=== PATIENT | male | born 1940 | race Caucasian/White ===

== ENCOUNTER 2019-10-23 08:52 | Inpatient (IN) | payer BC, MEDICARE ==
[~2019-10-23] VITALS: Ht 180.3 cm; Wt 58.3 kg
[2019-10-23] MEDS ORDERED: IOHEXOL-350 100 ML VIAL IV ONE ×2 (09:06→09:16)
[2019-10-23 09:09] LABS: BASOPHILS % (AUTO) 0.4 % (0.0-2.0); EOSINOPHILS % (AUTO) 0.7 % (0.0-6.0); HEMATOCRIT 45 % (39-51); HEMOGLOBIN 14.8 g/dL (13.5-17.5); LYMPHOCYTES # (AUTO) 0.3 /CMM (0.8-4.8); MEAN CORPUSCULAR HGB CONC 33 g/dl (31.0-36.0); MEAN CORPUSCULAR VOLUME 87 fL (80-96); MONOCYTES # (AUTO) 0.8 /CMM (0.1-1.30); MONOCYTES % (AUTO) 9.1 % (2.0-12.0); NEUTROPHILS # (AUTO) 7.7 /CMM (1.8-8.9); NEUTROPHILS % (AUTO) 86.8 % (43.0-81.0); PLATELET COUNT (AUTO) 416 /CMM (150-450); RED BLOOD CELL COUNT(AUTO) 5.12 MIL/uL (4.5-6.0); WHITE BLOOD COUNT (AUTO) 8.9 K/uL (4.3-11.0)
[2019-10-23 09:15] LABS: CALCIUM, SERUM 9.3 mg/dL (8.5-10.1); CARBON DIOXIDE 31 mmol/L (21-32); CHLORIDE 95 mmol/L (98-107); GLUCOSE 95 mg/dL (74-106); POTASSIUM 5.1 mmol/L (3.5-5.1); SODIUM SERUM 132 mmol/L (136-145); UREA NITROGEN, BLOOD 24 mg/dL (7-18)
[2019-10-23] MEDS ORDERED: DOCU-141 PO (09:20)
[2019-10-23] MEDS ORDERED: ASPI-605 PO (09:20)
[2019-10-23] MEDS ORDERED: MELO-105 PO (09:20)
[2019-10-23] MEDS ORDERED: OLME20TA13 PO (09:20)
[2019-10-23] MEDS ORDERED: PSYL3.4P6 PO (09:20)
[2019-10-23] MEDS ORDERED: TAMS-12 PO (09:20)
[2019-10-23] MEDS ORDERED: FAMO20TA8 PO ×2 (09:20)
[2019-10-23] MEDS ORDERED: BENZ0.5T43 PO (09:20)
[2019-10-23] MEDS ORDERED: LIDO1ADH71 BC (09:20)
[2019-10-23] MEDS ORDERED: ATOR20TA PO (09:20)
[2019-10-23 09:22] LABS: ALANINE AMINOTRANSFERASE 25 U/L (12-78); ALBUMIN 3.1 g/dL (3.4-5.0); BILIRUBIN,DIRECT 0.1 mg/dL (0.0-0.2); BILIRUBIN,TOTAL 0.6 mg/dL (0.2-1.0); TOTAL PROTEIN, SERUM 6.7 g/dL (6.4-8.2)
[2019-10-23 09:25] LABS: CHOLESTEROL 141 mg/dL (<200); HDL CHOLESTEROL 72 mg/dL (40-60); LDL 52 mg/dL (0-99); TRIGLYCERIDES 34 mg/dL (30-150)
[2019-10-23 09:33] LABS: ALKALINE PHOSPHATASE 165 U/L (46-116); ASPARTATE AMINOTRANSFERASE 33 U/L (15-37)
[2019-10-23] MEDS ORDERED: ASPIRIN 325 MG TABLET ONE (11:57)
[2019-10-23] MEDS ORDERED: ASPIRIN 325 MG TABLET PO SCH (12:00)
[2019-10-23] MEDS: LIDOCAINE 5% (PATCH) 1 EA PATCH TP SCH (15:25)
[2019-10-23 16:48] VITALS: BP 121/56
[2019-10-23] MEDS: DOCUSATE SODIUM 100 MG CAPSULE PO SCH (18:03)
[2019-10-23] MEDS: BENZTROPINE MESYLATE (1 MG) 1 MG TABLET PO SCH (18:03)
[2019-10-23 20:00] VITALS: BP 158/72
[2019-10-23] MEDS ORDERED: HYDROCODONE/APAP 5/325MG 1 EACH TABLET PO PRN (21:00)
[2019-10-23 22:00] VITALS: BP 158/72
[2019-10-23] MEDS: FAMOTIDINE (20 MG) 20 MG TABLET PO SCH (22:01)
[2019-10-23] MEDS: ATORVASTATIN 10 MG TABLET PO SCH (22:01)
[2019-10-23] MEDS: TAMSULOSIN 0.4 MG CAP.SR.24H PO SCH (22:01)
[2019-10-23] MEDS: ASPIRIN EC 81 MG TABLET.DR PO SCH (22:01)
[2019-10-24] VITALS: BP 122/62
[2019-10-24 00:26] VITALS: BP 122/62
[2019-10-24 04:00] VITALS: BP 112/56
[2019-10-24 08:00] VITALS: BP 132/71
[2019-10-24] MEDS: FAMOTIDINE (20 MG) 20 MG TABLET PO SCH ×2 (08:41→21:59)
[2019-10-24] MEDS: LOSARTAN POTASSIUM 50 MG TABLET PO SCH (08:41)
[2019-10-24] MEDS: DOCUSATE SODIUM 100 MG CAPSULE PO SCH ×2 (08:41→16:54)
[2019-10-24] MEDS: BENZTROPINE MESYLATE (1 MG) 1 MG TABLET PO SCH ×2 (08:41→16:54)
[2019-10-24] MEDS ORDERED: POLYETHYLENE GLYCOL 3350 17 GM POWD.PACK PO PRN (12:30)
[2019-10-24] MEDS ORDERED: BISACODYL SUPP (10 MG) 10 MG/SUPP.RECT SUPP.RECT RC PRN (12:30)
[2019-10-24] MEDS: GLUCERNA SHAKE 237 ML CAN PO SCH ×2 (13:47→16:54)
[2019-10-24] MEDS: LIDOCAINE 5% (PATCH) 1 EA PATCH TP SCH (15:00)
[2019-10-24 16:00] VITALS: BP 131/67
[2019-10-24 20:00] VITALS: BP 138/67
[2019-10-24] MEDS ORDERED: LIDOCAINE 5% (PATCH) 1 EA PATCH TP SCH (20:00)
[2019-10-24] MEDS: ASPIRIN EC 81 MG TABLET.DR PO SCH (21:59)
[2019-10-24] MEDS: ATORVASTATIN 10 MG TABLET PO SCH (21:59)
[2019-10-24] MEDS: TAMSULOSIN 0.4 MG CAP.SR.24H PO SCH (21:59)
[2019-10-24] MEDS ORDERED: SENNOSIDES/DOCUSATE SODIUM 1 TAB TABLET PO SCH (22:00)
[2019-10-25] MEDS ORDERED: Z GUARD REMEDY 2 OZ OINT TP PRN (01:30)
[2019-10-25 08:00] VITALS: BP 126/67
[2019-10-25] MEDS: DOCUSATE SODIUM 100 MG CAPSULE PO SCH (09:00)
[2019-10-25] MEDS: FAMOTIDINE (20 MG) 20 MG TABLET PO SCH (09:11)
[2019-10-25 09:12] VITALS: BP 120/67
[2019-10-25] MEDS: LOSARTAN POTASSIUM 50 MG TABLET PO SCH (09:12)
[2019-10-25] MEDS: BENZTROPINE MESYLATE (1 MG) 1 MG TABLET PO SCH (09:12)
[2019-10-25] MEDS: GLUCERNA SHAKE 237 ML CAN PO SCH ×2 (09:12→12:36)
== END 2019-10-25 16:00 | disposition hospice, home (50) | DRG 101 ==
LOC: ER 09:04 → TELE 11:31 → MED 10-24 09:24
PROVIDERS: ATTEND Internal Medicine
DX: G40.909 Epilepsy, unspecified, not intractable, without status epilepticus (principal); E87.1 Hypo-osmolality and hyponatremia; J98.11 Atelectasis; I10 Essential (primary) hypertension; E78.5 Hyperlipidemia, unspecified; E23.6 Other disorders of pituitary gland; Z86.73 Personal history of transient ischemic attack (TIA), and cerebral infarction without residual deficits; K21.9 Gastro-esophageal reflux disease without esophagitis; Z85.528 Personal history of other malignant neoplasm of kidney; Z99.3 Dependence on wheelchair; G62.9 Polyneuropathy, unspecified; Z51.5 Encounter for palliative care; G31.89 Other specified degenerative diseases of nervous system; R29.810 Facial weakness
CPT/HCPCS: 36415; 70496-TC; 70498-TC; 70551-TC; 71045-TC; 80048-TC; 80061-TC; 80076-TC; 83605-TC; 84484-TC; 85025-TC; 85730-TC; 86850-TC; 87040-TC; 87081-TC; 92611-TC; 97530-TC; G0378; J7030; Q9967